=== PATIENT | male | born 1935 | race Caucasian/White ===

== ENCOUNTER 2021-09-14 19:11 | Emergency (ER) | payer MEDICARE ==
[2021-09-14 19:36] LABS: HEMOGLOBIN 13.4 gm/dl (14.0-17.5); RED BLOOD COUNT 4.24 M/UL (4.20-5.50); WHITE BLOOD COUNT 11.3 K/UL (4.5-11.0)
[2021-09-14 19:50] LABS: BUN/CREATININE RATIO 17 (0-10)
== END 2021-09-14 22:55 | disposition home or self-care (01) ==
LOC: ER1 19:11
PROVIDERS: Physician Assistant
DX: I44.2 Atrioventricular block, complete (principal); I12.9 Hypertensive chronic kidney disease with stage 1 through stage 4 chronic kidney disease, or unspecified chronic kidney disease; N18.9 Chronic kidney disease, unspecified; I48.91 Unspecified atrial fibrillation; I49.5 Sick sinus syndrome; Z87.442 Personal history of urinary calculi; Z85.828 Personal history of other malignant neoplasm of skin
CPT/HCPCS: 33210; 51702; 71045; 80053; 82550; 82553; 83735; 84439; 84443; 84484; 85025; 96374; 96375; 99285; J0461; J1644; J2550; J7040